=== PATIENT | female | born 1985 | race African-American/Black ===

== ENCOUNTER 2020-09-24 21:49 | Inpatient (IN) ==
[2020-09-24] MEDS ORDERED: LACTATED RINGERS 1,000 ML IV ONE (22:04)
[2020-09-24] MEDS ORDERED: BUTORPHANOL 2 MG/ML VIAL IV PRN (22:04)
[2020-09-24 22:36] LABS: Basophils % 0.4 % (0.0-0.8); Eosinophils # 0.2 10*3/uL (0.0-0.87); Eosinophils % 2.1 % (0.00-10.9); Hematocrit 36.1 VOL% (35.7-47.0); Hemoglobin 12.4 GM/DL (12.0-16.0); Immature Granulocytes % 3.1 %; Immature Granulocytes Absolute 0.32 #; Lymphocytes # 1.7 10*3/uL (1.4-4.0); Lymphocytes % 16.6 % (21.3-54.2); Mean Corpuscular HGB Conc 34.3 GM/DL (32-36); Mean Corpuscular Volume 91.9 FL (87-102); Mean Platelet Volume 11.4 FL (9.6-12.0); Monocytes % 12.1 % (1.7-12.7); Neutrophils % 65.7 % (38.7-73.9); Platelet Count 240 T/CUMM (130-400); Red Blood Count 3.93 MC/CUMM (3.8-5.5); Red Cell Distribution Width 12.5 % (9.3-17.3); White Blood Count 10.4 T/CUMM (4-12)
[2020-09-24 23:06] LABS: Alanine Aminotransferase 16 U/L (13-56); Albumin 2.7 G/DL (3.4-5.0); Alkaline Phosphatase 96 U/L (45-117); Aspartate Amino Transferase 19 U/L (0-37); Bilirubin,Total < 0.39 MG/DL (0.2-1.0); Blood Urea Nitrogen 11 MG/DL (7-18); Carbon Dioxide 22 MMOL/L (21-32); Estimated Glom Filtration Rate 111 ML/MIN; Glucose 94 MG/DL (74-106); Osmolality,Calculated 273.7 MOS/KG (273-304); Potassium 3.8 MMOL/L (3.5-5.1); Sodium 138 MMOL/L (136-145); Total Protein 6.9 G/DL (6.4-8.3)
[2020-09-25] MEDS: LACTATED RINGERS 1,000 ML IV SCH ×2 (05:51→20:14)
[2020-09-25] MEDS ORDERED: OXYTOCIN/LR 20 UNIT/1,000 ML BAG IV SCH (08:11)
[2020-09-25] MEDS: ACETAMINOPHEN 500 MG TABLET PO PRN ×2 (08:45→15:08)
[2020-09-25] MEDS ORDERED: INFLUENZA VIRUS VACCINE 0.5 ML SYRINGE IM ONE (10:00)
[2020-09-25] MEDS: ONDANSETRON 4 MG/2 ML VIAL IV PRN (17:13)
[2020-09-25] MEDS ORDERED: BUTORPHANOL 1 MG/ML VIAL ONE (18:05)
[2020-09-25] MEDS ORDERED: BUTORPHANOL 1 MG/ML VIAL IV PRN (18:06)
[2020-09-25] MEDS ORDERED: hydrOXYzine HCL 25 MG/1 ML VIAL IM PRN (19:21)
[2020-09-25] MEDS ORDERED: diphenhydrAMINE 50 MG/1 ML VIAL IV PRN ×2 (19:21)
[2020-09-25] MEDS ORDERED: LACTATED RINGERS 250 ML IV PRN (19:21)
[2020-09-25] MEDS ORDERED: ONDANSETRON 4 MG/2 ML VIAL IV ONE (19:21)
[2020-09-25] MEDS ORDERED: CITRIC ACID/SODIUM CITRATE 30 ML UDCUP PO ONE (19:21)
[2020-09-25] MEDS ORDERED: NALOXONE 0.4 MG/ML VIAL IV PRN (19:21)
[2020-09-25] MEDS ORDERED: PROMETHAZINE 25 MG/1 ML VIAL IM ONE (19:21)
[2020-09-25] MEDS ORDERED: FAMOTIDINE 20 MG/2 ML VIAL IV ONE (19:21)
[2020-09-25] MEDS ORDERED: LACTATED RINGERS 1,000 ML IV SCH (19:30)
[2020-09-25] MEDS ORDERED: fentaNYL 2 MCG/ROPIV 0.2% EPID 100 ML EPIDURAL SCH (19:30)
[2020-09-25] MEDS: ePHEDrine 50 MG/ML VIAL IV PRN ×3 (20:29→20:44)
[2020-09-25 21:58] LABS: Bilirubin,Urine Negative (Negative); Blood, Urine Negative (Negative); Glucose,Urine (UA) Negative (Negative); Ketones,Urine 20 mg/dL (Negative); Mucus,Urine Moderate /LPF (Occasional); Nitrite,Urine Negative (Negative); Protein,Urine 100 MG/DL; RBC,Urine 2 /HPF (0-4); Squamous Epithelial Cell,Urine Occasional /HPF (0-10); Urine Appearance CLEAR (Clear); Urine Color Yellow (Yellow); Urine Specific Gravity 1.027 (1.001-1.035); Urine Urobilinogen < 2.0 EU/DL (0.2-1.0); WBC,Urine <1 /HPF (0-6)
[2020-09-25] MEDS ORDERED: CLINDAMYCIN INJ 900 MG in PREMIX 1 EACH IV ONE (22:09)
[2020-09-25] MEDS ORDERED: BUPIVACAINE MPF 0.5% /EPI 30 ML VIAL ONE (22:15)
[2020-09-25] MEDS ORDERED: LIDOCAINE MPF 2% /EPI 20 ML VIAL ONE (22:15)
[2020-09-25] MEDS ORDERED: MORPHINE 10 MG/10 ML VIAL ONE (22:16)
[2020-09-25] MEDS ORDERED: ONDANSETRON 4 MG/2 ML VIAL ONE (22:16)
[2020-09-25] MEDS ORDERED: CARBOPROST TROMETHAMINE 250 MCG/ML AMP IM ONE (22:17)
[2020-09-25] MEDS ORDERED: OXYTOCIN/LR 20 UNIT/1,000 ML BAG IV ONE ×2 (22:17→23:20)
[2020-09-25] MEDS ORDERED: miSOPROStoL 200 MCG TABLET ONE (22:17)
[2020-09-25] MEDS ORDERED: TRANEXAMIC ACID 1,000 MG/10 ML VIAL ONE (22:17)
[2020-09-25] MEDS ORDERED: METHYLERGONOVINE 0.2 MG/1 ML AMP ONE (22:17)
[2020-09-25] MEDS ORDERED: SODIUM CHLORIDE 0.9% 100 ML IV ONE (22:18)
[2020-09-25] MEDS ORDERED: PHENYLEPHRINE 1 MG/10 ML SYRINGE IV ONE ×2 (22:40→23:18)
[2020-09-25] MEDS ORDERED: propofoL 200 MG/20 ML VIAL IV ONE (22:54)
[2020-09-25] MEDS ORDERED: METOPROLOL TARTRATE 5 MG/5 ML VIAL IV ONE (23:00)
[2020-09-25 23:16] LABS: Cord Arterial Blood HCO3 14.8 MMOL/L
[2020-09-25 23:19] LABS: Cord Venous Blood HCO3 16.6 MMOL/L; Cord Venous Blood PCO2 60.2 MMHG
[2020-09-25] MEDS ORDERED: DIPH/TET/ACEL PERT BOOSTER VACCINE 0.5 ML VIAL IM ONE (23:20)
[2020-09-25] MEDS ORDERED: BISACODYL 10 MG SUPP RECTAL PRN (23:20)
[2020-09-25] MEDS ORDERED: BENZOCAINE 20%/MENTHOL 0.5% SPRAY 56 GM CAN TOP PRN (23:20)
[2020-09-25] MEDS ORDERED: MEASLES/MUMPS/RUBELLA VACCINE 0.5 ML VIAL SUBCUT ONE (23:20)
[2020-09-25] MEDS ORDERED: ACETAMINOPHEN 325 MG TABLET PO PRN (23:20)
[2020-09-25] MEDS ORDERED: IBUPROFEN 800 MG TABLET PO PRN (23:20)
[2020-09-25] MEDS ORDERED: HYDROCORTISONE 2.5% RECTAL CREAM 30 GM TUBE TOP PRN (23:20)
[2020-09-25] MEDS ORDERED: oxyCODONE/ACETAMINOPHEN 5-325 MG TABLET PO PRN ×2 (23:20)
[2020-09-25] MEDS ORDERED: LANOLIN 50% CREAM 0.3 OZ TUBE TOP PRN (23:20)
[2020-09-25] MEDS ORDERED: WITCH HAZEL PADS 100/JAR TOP PRN (23:20)
[2020-09-25] MEDS ORDERED: RHO(D) IMMUNE GLOBULIN 300 MCG SYRINGE IM ONE (23:20)
[2020-09-25 23:25] LABS: Cord Venous Blood PO2 16.1
[2020-09-26] MEDS: ONDANSETRON 4 MG/2 ML VIAL IV PRN ×3 (00:07→10:35)
[2020-09-26] MEDS: KETOROLAC 30 MG/1 ML VIAL IV SCH ×3 (00:53→16:08)
[2020-09-26] MEDS: ACETAMINOPHEN 500 MG TABLET PO SCH ×3 (00:54→14:34)
[2020-09-26 06:07] LABS: Basophils % 0.2 % (0.0-0.8); Eosinophils % 0.2 % (0.00-10.9); Hematocrit 33.9 VOL% (35.7-47.0); Hemoglobin 11.2 GM/DL (12.0-16.0); Immature Granulocytes % 1.9 %; Immature Granulocytes Absolute 0.24 #; Lymphocytes # 1.1 10*3/uL (1.4-4.0); Lymphocytes % 8.5 % (21.3-54.2); Mean Corpuscular Volume 94.4 FL (87-102); Monocytes % 8.5 % (1.7-12.7); Neutrophils % 80.7 % (38.7-73.9); Platelet Count 189 T/CUMM (130-400); Red Blood Count 3.59 MC/CUMM (3.8-5.5); Red Cell Distribution Width 12.5 % (9.3-17.3); White Blood Count 12.7 T/CUMM (4-12)
[2020-09-26] MEDS: CLINDAMYCIN INJ 900 MG in PREMIX 1 EACH IV SCH ×3 (06:20→22:12)
[2020-09-26] MEDS: DOCUSATE SODIUM 100 MG CAPSULE PO SCH ×3 (16:08→20:52)
[2020-09-27 07:23] VITALS: BP 147/85
[2020-09-27] MEDS ORDERED: FUROSEMIDE 40 MG/4 ML VIAL IV ONE (08:00)
[2020-09-27] MEDS: DOCUSATE SODIUM 100 MG CAPSULE PO SCH (08:35)
== END 2020-09-27 14:30 | disposition home or self-care (01) | DRG 787 ==
LOC: N.LDOUT 21:49 → N.LD 21:52 → N.OB 09-26 03:45
PROVIDERS: ADMIT Specialist; ATTEND Specialist
PROC: LDCSECT (ICD-10-PCS; 2020-09-25 22:30)